=== PATIENT | male | born 1965 | race Native Hawaiian/Other Pacific Islander ===

== ENCOUNTER 2022-06-13 09:41 | Outpatient (CLI) | payer OTHER ==
[~2022-06-13 09:41] MED LIST: HYDR25TA60 PO; LEVO0.0218 PO; ZESTRIL40 MG OR
[2022-06-13 16:36] LABS: POTASSIUM 3.4 mmol/L (3.6-5.2)
== END 2022-06-13 20:57 | disposition home or self-care (01) ==
LOC: RAD 09:41
PROVIDERS: ATTEND Nurse Practitioner Primary Care
DX: R51.9 Headache, unspecified (principal); R07.89 Other chest pain
CPT/HCPCS: 80053; 82550; 82553; 84484; 93005

== ENCOUNTER 2022-06-18 12:09 | Emergency (ER) | payer OTHER ==
[~2022-06-18] VITALS: Ht 172.7 cm; Wt 108.0 kg
[2022-06-18 12:27] VITALS: TEMP 98.7
[2022-06-18 13:52] LABS: PLATELET COUNT 226 K/uL (142-355)
[2022-06-18 14:10] LABS: PARTIAL THROMBOPLASTIN TIME 26.1 SECONDS (24.5-33.6)
[2022-06-18 16:21] VITALS: BP 147/77
== END 2022-06-18 16:21 | disposition home or self-care (01) ==
LOC: AMG 12:09 → ED 12:09
PROVIDERS: Emergency Medicine
DX: I10 Essential (primary) hypertension (principal); R42 Dizziness and giddiness
CPT/HCPCS: 36415; 80053; 83880; 84443; 84484; 85027; 85610; 85730; 93005; 99284

== ENCOUNTER 2022-06-19 13:48 | Outpatient (CLI) | payer OTHER | END 2022-06-19 18:54 | disposition home or self-care (01) | LOC: RESP 13:48 | PROVIDERS: ATTEND Nurse Practitioner Primary Care | DX: R94.31 Abnormal electrocardiogram [ECG] [EKG] (principal) | CPT/HCPCS: 93225 ==

== ENCOUNTER 2022-06-26 08:53 | Outpatient (CLI) | payer OTHER | END 2022-06-26 19:18 | disposition home or self-care (01) | LOC: RESP 08:53 | PROVIDERS: ATTEND Nurse Practitioner Primary Care | DX: R94.31 Abnormal electrocardiogram [ECG] [EKG] (principal) ==

== ENCOUNTER 2022-07-01 11:04 | Outpatient (CLI) | payer OTHER ==
[2022-07-01 11:39] LABS: PLATELET COUNT 236 K/uL (142-355)
[2022-07-01 12:15] LABS: POTASSIUM 3.2 mmol/L (3.6-5.2)
== END 2022-07-01 20:06 | disposition home or self-care (01) ==
LOC: LABW 11:04
PROVIDERS: ATTEND Nurse Practitioner Family
DX: M10.9 Gout, unspecified (principal); I51.7 Cardiomegaly
CPT/HCPCS: 36415; 80053; 83735; 84550; 85027

== ENCOUNTER 2022-07-03 08:59 | Outpatient (CLI) | payer OTHER ==
[~2022-07-03] VITALS: Ht 172.7 cm; Wt 107.0 kg
== END 2022-07-03 23:21 | disposition home or self-care (01) ==
LOC: NM 08:59
PROVIDERS: ATTEND Nurse Practitioner Primary Care
DX: R94.31 Abnormal electrocardiogram [ECG] [EKG] (principal)
CPT/HCPCS: A9500; J2785

== ENCOUNTER 2023-05-26 07:54 | Observation (INO) | payer OTHER ==
[2023-05-26] VITALS (11 sets, daily range): BP systolic 122–205; BP diastolic 67–109; TEMP 97.6–98.4; Ht 172.7 cm; Wt 101.6 kg
[~2023-05-26] VITALS: Ht 172.7 cm; Wt 101.6 kg
[~2023-05-26 07:54] MED LIST changes: -LEVO0.0218 PO; +LEVO0.0723 PO
[2023-05-26 08:33] LABS: POTASSIUM 3.7 mmol/L (3.6-5.2)
[2023-05-26 08:41] LABS: PLATELET COUNT 215 K/uL (142-355)
[2023-05-26] MEDS ORDERED: TENORETIC50 MG PO (11:18)
[2023-05-26] MEDS ORDERED: ASPIR-LOW81 MG PO (11:19)
[2023-05-26] MEDS ORDERED: SIMV20TA2 PO (11:20)
[2023-05-27 03:57] LABS: PLATELET COUNT 175 K/uL (142-355)
[2023-05-27 04:04] LABS: POTASSIUM 4.2 mmol/L (3.6-5.2)
[2023-05-27 08:05] VITALS: BP 170/94; TEMP 98.5
== END 2023-05-27 11:29 | disposition home or self-care (01) ==
LOC: ED 07:54 → MED/SURG 09:16
PROVIDERS: Family Medicine; ADMIT Nurse Practitioner Family; ATTEND Internal Medicine Endocrinology, Diabetes & Metabolism
DX: R07.89 Other chest pain (principal); R20.0 Anesthesia of skin; R06.02 Shortness of breath; R42 Dizziness and giddiness; I10 Essential (primary) hypertension; K21.9 Gastro-esophageal reflux disease without esophagitis; E78.49 Other hyperlipidemia; E03.8 Other specified hypothyroidism; E66.9 Obesity, unspecified
CPT/HCPCS: 36415; 80048; 80053; 80061; 84484; 85027; 85379; 93005; 96374; 96375; 99221; 99284; G0378; J2270; J2405